=== PATIENT | female | born 1955 | race Caucasian/White ===

== ENCOUNTER 2024-09-18 14:35 | Emergency (ER) | payer SELFPAY ==
[2024-09-18 14:38] VITALS: BP 143/88
[2024-09-18 15:07] LABS: % Basophils 1.1 % (0-2); % Eosinophils 1.6 % (0-6); % Immature Granulocytes 0.5 % (0-0.5); % Lymphocytes 32.2 % (20.5-51.1); % Monocytes 10.1 % (1.7-9.3); % Neutrophils 54.5 % (42.2-75.2); Absolute Basophils 0.1 10^3/uL (0-0.2); Absolute Eosinophils 0.1 10^3/uL (0-0.7); Absolute Lymphocytes 2.4 10^3/uL (1.2-3.4); Absolute Monocytes 0.8 10^3/uL (0.1-0.6); Hematocrit 44.4 % (37.0-47.0); Mean Corp Hgb Conc. 33.8 g/dL (33.0-37.0); Mean Corpuscular Hgb 31.1 pg (27.0-31.0); Mean Corpuscular Volume 92.1 fL (81.0-99.0); Mean Platelet Volume 9.5 fL (7.4-10.4); Nucleated Red Blood Cells % 0 %; Platelet Count 248 10^3/uL (130-400); Red Blood Cell Count 4.82 10^6/uL (4.20-5.40); Red Cell Dist. Width 11.9 % (11.5-14.5); White Blood Cell Count 7.4 10^3/uL (4.8-10.8)
[2024-09-18 15:25] LABS: COVID-19 Antigen Negative (Negative)
[2024-09-18 15:26] LABS: ALT (SGPT) 31 U/L (0-35); AST (SGOT) 37 U/L (14-36); Albumin 4.9 g/dl (3.5-5.0); Alkaline Phosphatase 78 U/L (38-126); Blood Urea Nitrogen 21 mg/dl (7-17); Calcium 9.8 mg/dl (8.4-10.2); Carbon Dioxide 24 mmol/L (22-30); Chloride 102 mmol/L (98-107); Glucose 93 mg/dl (70-99); Potassium 3.8 mmol/L (3.5-5.1); Sodium 138 mmol/L (135-145); Total Bilirubin 0.6 mg/dl (0.2-1.3); Total Protein 7.4 g/dl (6.3-8.2); eGFR > 60.00
[2024-09-18 18:44] VITALS: BP 122/74
--- NOTE | 2024-09-18 19:15 | ED.GENMED ---
History of Present Illness
General
Chief Complaint: Breathing Problem
Source: patient
Exam Limitations: none
Time Seen by Provider: 09/18/24 18:45
History of Present Illness
History of Present Illness:
This is a 69 year old female that comes in with c/o SOB. States that she went to see the PCP today. States that she has been fatigued for 3 weeks and that her SOB breath started this past week. Denies any fever, chills, chest pain, abd pain, nausea,
vomiting, diarrhea, headache, dizziness, urinary burning.
Past History
Past History
ED Past Medical History: Cancer (Skin cancer, Basal cell), Psychiatric (Anxiety, Depression) and Other (LYME/CHRONIC FATIGUE, back pain, Sleep apena, IBS, )
ED Past Surgical History: Orthopedic (Left knee surgery, ), Tonsilectomy and Other (cataracts, Deviated septum, )
Social History
Tobacco: Non-smoker
Alcohol: Occasional
Drug: None
Personal:
Living: alone
Review of Systems
Review of Systems
All Other Systems: ROS reviewed and negative except as documented in HPI and ROS
Constitutional: Reports fatigue; Denies fever or chills
EENT: Reports no symptoms
Respiratory: Reports trouble breathing; Denies cough
Cardiac: Reports no symptoms; Denies chest pain
ABD/GI: Reports no symptoms; Denies abdominal pain, nausea, vomiting or diarrhea
: Reports no symptoms; Denies dysuria, frequency or urgency
Musculoskeletal: Reports no symptoms
Skin: Reports no symptoms
Neurological: Reports no symptoms; Denies dizzy or headache
Psychiatric: Reports no symptoms
Phy Exam
General Physical Exam
General Presentation: well appearing (Patient talking in room with friend and after taking with her she started this heavy breathing. Not seen on entering the room) and no apparent distress
General age: appears stated age
General Skin: warm and dry
General Habitus: elderly
General Mental: alert
General Hydration: appears well hydrated
ENT Exam
ENT Exam: TM's normal, pharynx normal and neck supple
Eye Exam
Eye Exam: EOMI
Cardiovascular Exam
Cardiovascular Exam: regular rate/rhythm, no edema, no murmur and normal peripheral pulses
Pulmonary Exam
Pulmonary Exam: lungs clear, no respiratory distress, no rales, chest non tender, no crackles, no rhonchi, no wheezing and no cough
Gastrointestinal Exam
Gastrointestinal Exam: normal bowel sounds, non tender, soft, no organomegaly, no pulsatile mass and non distended
Musculoskeletal Exam
Musculoskeletal Exam: full ROM and no edema
Skin Exam
Skin Exam: normal color, warm/dry, no rash and no petechia
Scores
Heart Failure Risk
Heart Failure Risk Score: Not Applicable
Course
Orders/Labs/Results
Orders:
Orders
09/18/24 14:41
CR Chest - 2 Views Urgent
Comment:
Reason For Exam: suspected infection
09/18/24 14:48
Complete Blood Count/With Diff Urgent
Comprehensive Metabolic Panel Urgent
09/18/24 14:49
COVID-19 Antigen Urgent
Source: Nasal Swab
INF RAPID [Influenza A+B Rapid Molecular] Urgent
MADELINE Source: Nasal Swab
Specimen Description:
Abnormal Lab Results
09/18/24
14:48
MCH 31.1 H pg
(27.0-31.0)
Absolute Monos (auto) 0.8 H 10^3/uL
(0.1-0.6)
Monocytes % 10.1 H %
(1.7-9.3)
BUN 21 H mg/dl
(7-17)
AST 37 H U/L
(14-36)
09/18/24 14:48
09/18/24 14:48
Very slight Dehydration. AST very slightly elevated. COVID, Influenza negative.
Vital Signs
Initial and Last Documented VS:
Initial Vital Signs
Temp Pulse Resp BP Pulse Ox
97.8 F 85 16 143/88 98
09/18/24 14:38 09/18/24 14:38 09/18/24 14:38 09/18/24 14:38 09/18/24 14:38
Last Documented Vital Signs
Temp Pulse Resp BP Pulse Ox
97.8 F 90 16 122/74 97
09/18/24 18:44 09/18/24 18:44 09/18/24 14:38 09/18/24 18:44 09/18/24 18:44
MDM/Problems Addressed
Differential Diagnosis Includes:
Anxiety, SOB
MDM/Problems Addressed:
This is a 69 year old female that comes in with c/o fatigue and SOB. States that the fatigue started 3 weeks ago and the then cough about a week ago.
Will check labs, COVID, Influenza and get chest x-ray.
Explained to patient that her Blood work shows that she is very slightly Dehydrated. Patient encouraged to increase her water intake to 8-8oz glasses daily. Patient to follow up with the PCP and if they feel appropriate a manager music for further
evaluation and ECHO. Patient to return with any concerns.
Chronic conditions affecting care: Psychiatric illness
Acute Exacerbation and/or Progression of Chronic Illness: Psychiatric illness
*Radiology
Radiology exam reviewed: radiology read reviewed (Chest-No acute cardiopulmonary process)
*Pulse Oximetry
Patient hypoxic: no
*EKG
Interpreted by ED Provider?: NA
Rate: EKG- N/A
*Tool Setter Apprentice Interpretation
Rate: Tool Setter Apprentice- N/A
*Critical Care Note
Total Time (30-74mins, 75-104mins- exclusive of procedures): Not Applicable
ED Attending Note
-
Portions of this chart may have been created with voice recognition software.� Occasional wrong word or��sound alike� substitutions may have occurred due to the inherent limitations of voice recognition software.
Discharge Plan
Departure
Patient Disposition: Home (Routine Discharge)
Date of Disposition: 09/18/24
Time of Disposition: 19:22
Patient with high blood pressure during this ER visit?: No
Condition: Good
Covid-19: Negative COVID-19
Discharge Problem:
Fatigue, SOB (shortness of breath)
Instructions: Fatigue (DC), Shortness of breath in adults - ED discharge instructions
Prescriptions:
No Action
lorazepam 1 MG tablet
1.5 mg PO HS
quetiapine 25 MG tablet
25 mg PO HS
dicyclomine 10 MG capsule
10 mg PO TIDPRN PRN (Reason: IBS)
Bupropion HCl
200 mg PO DAILY
Patient Comments:
took 150 mg this am
ascorbic acid (vitamin C) [Vitamin C] 1,000 MG tablet
1,000 mg PO TID
zinc gluconate 30 MG tablet
30 mg PO BID
prasterone (dhea)-calcium carb [DHEA] 1 EACH tablet
1 tab PO DAILY
Cholecalciferol (Vitamin D3) [Vitamin D3] 50 MCG Capsule
50 mcg PO DAILY
oxycodone 5 MG tablet
5 mg PO Q6HPRN PRN (Reason: moderate-severe pain) Qty: 30 0RF
Rx Instructions:
1 tab moderate pain or 2 if pain severe
Dx total joint replacement
ongoing therapy
ondansetron HCl 4 MG tablet
4 mg PO Q6HPRN PRN (Reason: nausea) Qty: 20 0RF
Rx Instructions:
Take 1/2 hour prior to Oxycodone for recurrent nausea.
mupirocin 1 APPLIC ointment
1 applic intranasal BID Qty: 1 0RF
Patient Comments:
took this am per patient 05/02/21
ivermectin [Stromectol] 3 MG tablet
12 mg PO WEEKLY
Patient Comments:
takes once a week on Fridays
citalopram 20 MG tablet
20 mg PO DAILY
acetaminophen 500 MG tablet
1,000 mg PO Q6H Qty: 60 0RF
Rx Instructions:
Do not exceed >4000 mg daily.
docusate sodium 100 MG capsule
100 mg PO BID Qty: 30 0RF
sennosides [senna] 8.6 MG capsule
8.6 mg PO BIDPRN PRN (Reason: constipation) Qty: 30 0RF
Rx Instructions:
Use as needed for constipation unrelieved by Colace.
aspirin 325 MG tablet,delayed release (DR/EC)
325 mg PO DAILY Qty: 28 0RF
Rx Instructions:
Take daily x4 weeks for blood clot prevention.
turmeric root extract 500 MG capsule
1,000 mg PO TID Qty: 0 0RF
Rx Instructions:
Resume in 1 week.
famotidine 20 MG tablet
20 mg PO BID Qty: 28 0RF
Rx Instructions:
Take 20 mg twice a day for 14 days
ascorbic acid (vitamin C) [Vitamin C] 500 MG tablet
1,000 mg PO BID Qty: 56 0RF
Rx Instructions:
Take 1,000 mg twice a day for 14 days
aspirin 81 MG tablet,chewable
81 mg PO DAILY Qty: 14 0RF
Rx Instructions:
Take 81 mg daily for 14 days
zinc sulfate 220 MG capsule
220 mg PO DAILY Qty: 14 0RF
Rx Instructions:
Take 220 mg daily for 14 days
cholecalciferol (vitamin D3) 1,000 UNITS tablet
2,000 units PO DAILY Qty: 28 0RF
Rx Instructions:
Take 2,000 units daily for 14 days
melatonin 5 MG tablet
5 mg PO HS Qty: 14 0RF
Rx Instructions:
Take 5 mg daily at bedtime for 14 days
Referrals:
Joe Mcmillan DO [Family Provider] - Follow up in 2-3 days
Activity Restrictions/Additional Instructions:
As discussed, your blood work shows very slight Dehydration. Please increase your water intake to 8-8oz glasses daily. You are negative for COVID and Influenza and your chest x-ray is normal. Please follow up with the family doctor and if he feels
appropriate the Open Source Developer for further evaluation. IF YOU HAVE ANY OTHER CONCERNS PLEASE RETURN TO THE EMERGENCY ROOM.
Interventions
Interventions:
*Risk Screen - Suicide Last Done: 09/18/24 14:38
*Neglect/Abuse Screening Last Done: 09/18/24 14:38
Discharge Date and Time
Print Language: CITIZEN OF [place]
== END 2024-09-18 19:47 | disposition home or self-care (01) ==
LOC: EMR 14:35
PROVIDERS: Emergency Medicine; EMERGENCY PHYSICIAN Emergency Medicine; FAMILY PHYSICIAN Family Medicine
DX: R06.02 Shortness of breath (principal); R53.83 Other fatigue; R05.9 Cough, unspecified; E86.0 Dehydration; Z11.52 Encounter for screening for COVID-19; F32.A Depression, unspecified; F41.9 Anxiety disorder, unspecified; K58.9 Irritable bowel syndrome, unspecified; G47.30 Sleep apnea, unspecified; Z85.828 Personal history of other malignant neoplasm of skin; Z91.040 Latex allergy status; Z88.5 Allergy status to narcotic agent; Z91.048 Other nonmedicinal substance allergy status
CPT/HCPCS: 99283; 71046; 80053; 85025; 87502; 87811